=== PATIENT | male | born 1960 | race Caucasian/White ===

== ENCOUNTER 2017-08-30 08:12 | Day surgery (SDC) | payer OTHER ==
[~2017-08-30] VITALS: Ht 177.8 cm; Wt 82.0 kg
[2017-08-30] MEDS ORDERED: TESSALON PERLE100 MG PO (08:59)
[2017-08-30 10:00] LABS: HEMATOCRIT 48.7 % (38.0-50.0); HEMOGLOBIN 17.1 G/DL (12.5-16.6); MCH 32.9 PG (29.0-34.0); MCHC 35.1 G/DL (30.0-36.0); MCV 93.8 FL (86-99); PLATELET COUNT 215 K/uL (156-360); RBC DIS.WIDTH-CV 11.9 % (11.8-14.6); RBC DIS.WIDTH-SD 40.9 % (39-53); RED BLOOD COUNT 5.19 M/uL (4.00-5.50); WHITE BLOOD COUNT 5.2 K/uL (4.1-10.2)
[2017-08-30 10:38] LABS: CHLORIDE 112 mEq/L (99-109); POTASSIUM 3.8 mEq/L (3.7-5.4); SODIUM 141 mEq/L (136-147)
[2017-08-30 10:40] LABS: GLUCOSE 118 mg/dL (70-99)
[2017-08-30 10:43] LABS: CREATININE 0.7 mg/dL (0.6-1.3); GFR ESTIMATE (CALCULATED) > 59 mL/min/ (58.99-99999)
[2017-08-30 10:44] LABS: UREA NITROGEN (BUN) 7 mg/dL (9-23)
== END 2017-08-30 15:30 | disposition home or self-care (01) ==
LOC: CATH 08:12
PROVIDERS: Internal Medicine Cardiovascular Disease
DX: I25.119 Atherosclerotic heart disease of native coronary artery with unspecified angina pectoris (principal); Z82.49 Family history of ischemic heart disease and other diseases of the circulatory system
CPT/HCPCS: 80048; 85027; 93005; C1769; C1887; J1644; J2250; J3010